=== PATIENT | male | born 1955 | race African-American/Black ===

== ENCOUNTER 2020-12-30 12:08 | Observation (INO) ==
[2020-12-30] MEDS ORDERED: MAGNESIUM SULF RIDER 2 GM in PREMIX 1 EACH IV PRN (13:01)
[2020-12-30] MEDS ORDERED: ACETAMINOPHEN 325 MG TABLET PO PRN (13:01)
[2020-12-30] MEDS ORDERED: ONDANSETRON 4 MG/2 ML VIAL IV PRN (13:01)
[2020-12-30] MEDS ORDERED: POTASSIUM CHLORIDE 20 MEQ TABLET PO PRN (13:01)
[2020-12-30] MEDS ORDERED: POTASSIUM CHLORIDE RIDER 10 MEQ in PREMIX 1 EACH IV PRN (13:01)
[2020-12-30] MEDS ORDERED: NITROGLYCERIN SL 0.4 MG TABLET SL PRN (13:05)
[2020-12-30 13:47] LABS: Basophils # 0.1 10*3/uL (0.0-0.2); Basophils % 1.1 % (0.0-0.8); Eosinophils # 0.2 10*3/uL (0.0-0.87); Eosinophils % 3.8 % (0.00-10.9); Hemoglobin 15.8 GM/DL (14.0-18.0); Immature Granulocytes % 0.2 %; Immature Granulocytes Absolute 0.01 #; Lymphocytes # 1.5 10*3/uL (1.4-4.0); Lymphocytes % 31.4 % (21.2-54.2); Mean Corpuscular HGB Conc 32.2 GM/DL (32-36); Mean Corpuscular Volume 90.1 FL (87-102); Mean Platelet Volume 10.1 FL (9.6-12.0); Monocytes % 8.9 % (1.7-12.7); Neutrophils % 54.6 % (38.7-73.9); Platelet Count 272 T/CUMM (130-400); Red Blood Count 5.44 MC/CUMM (3.8-5.5); White Blood Count 4.7 T/CUMM (4-12)
[2020-12-30 14:05] LABS: Albumin 3.5 G/DL (3.4-5.0); Bilirubin,Total 0.6 MG/DL (0.2-1.0); Calcium 9.1 MG/DL (8.5-10.1); Osmolality,Calculated 273.7 MOS/KG (273-304); Potassium 4.5 MMOL/L (3.5-5.1); Total Protein 7.9 G/DL (6.4-8.3)
[2020-12-30 14:07] LABS: Troponin I < 0.015 NG/ML (0.00-0.045)
[2020-12-30 14:15] LABS: Eosinophils 3 % (0-10); Lymphocytes 23 % (20-55); Segmented Neutrophils 72 % (50-85); Total Cells Counted 100
[2020-12-30 14:16] LABS: Platelet Estimate Normal
[2020-12-30] MEDS: ASPIRIN EC 81 MG TABLET PO SCH (15:28)
[2020-12-30] MEDS ORDERED: hydrALAZINE 20 MG/1 ML VIAL IV PRN (16:35)
[2020-12-30] MEDS ORDERED: SODIUM CHLORIDE 0.9% 1,000 ML IV SCH (16:36)
[2020-12-30] MEDS: amLODIPine 5 MG TABLET PO SCH (17:39)
[2020-12-30] MEDS ORDERED: ENOXAPARIN 40 MG/0.4 ML SYRINGE SUBCUT SCH (21:00)
[2020-12-30] MEDS: DOCUSATE SODIUM 100 MG CAPSULE PO SCH (22:49)
[2020-12-30] MEDS: carvediloL 3.125 MG TABLET PO SCH (22:49)
[2020-12-31 06:08] LABS: Risk Ratio 4.5; VLDL CHOLESTEROL 57.4 MG/DL
[2020-12-31 06:17] LABS: Albumin 2.9 G/DL (3.4-5.0); Bilirubin,Total 0.4 MG/DL (0.2-1.0); Calcium 8.6 MG/DL (8.5-10.1); Osmolality,Calculated 277.4 MOS/KG (273-304); Potassium 3.9 MMOL/L (3.5-5.1); Total Protein 6.6 G/DL (6.4-8.3)
[2020-12-31] MEDS: carvediloL 3.125 MG TABLET PO SCH (08:35)
[2020-12-31] MEDS: DOCUSATE SODIUM 100 MG CAPSULE PO SCH (08:35)
[2020-12-31] MEDS: amLODIPine 5 MG TABLET PO SCH (08:35)
[2020-12-31] MEDS: ASPIRIN EC 81 MG TABLET PO SCH (08:35)
[2020-12-31] MEDS ORDERED: PANTOPRAZOLE 40 MG TABLET PO SCH (09:00)
[2020-12-31 09:57] LABS: INR 1.1; PT Patient Result 10.9 SECS (9.8-11.9)
[2020-12-31 12:17] VITALS: BP 112/59
== END 2020-12-31 13:20 | disposition home or self-care (01) ==
LOC: N.TELES
PROVIDERS: ADMIT Family Medicine; ATTEND Family Medicine